=== PATIENT | female | born 1965 | race Two or more races ===

== ENCOUNTER 2017-09-11 10:02 | Outpatient (CLI) | payer OTHER | END 2017-09-11 10:17 | disposition home or self-care (01) | LOC: SONOGRAMA 10:02 | DX: N60.11 Diffuse cystic mastopathy of right breast (principal); N60.12 Diffuse cystic mastopathy of left breast ==

== ENCOUNTER 2019-08-26 13:14 | Outpatient (CLI) | payer OTHER | END 2019-08-26 13:35 | disposition home or self-care (01) | LOC: LAB 13:14 | DX: Z20.828 Contact with and (suspected) exposure to other viral communicable diseases (principal) ==